=== PATIENT | male | born 1990 | race Caucasian/White ===

== ENCOUNTER → 2019-07-19 | Outpatient (CLI) | payer OTHER | END | disposition home or self-care (01) | LOC: LAB 03:48 | DX: Z03.818 Encounter for observation for suspected exposure to other biological agents ruled out (principal) | CPT/HCPCS: U0003-CS ==

== ENCOUNTER 2019-08-07 01:53 | Emergency (ER) | payer OTHER ==
[~2019-08-07] VITALS: Ht 170.2 cm; Wt 81.6 kg
[2019-08-07 01:56] VITALS: BP 114/72
== END 2019-08-07 02:15 | disposition home or self-care (01) ==
LOC: ER 01:53
DX: Z03.818 Encounter for observation for suspected exposure to other biological agents ruled out (principal)
CPT/HCPCS: 99283; C9803; U0003

== ENCOUNTER 2019-08-21 15:23 | Outpatient (CLI) | payer BC ==
[2019-08-21 16:05] LABS: BASOPHILS % (AUTO) 0.8 % (0.0-2.0); EOSINOPHILS % (AUTO) 4.1 % (0.0-6.0); HEMATOCRIT 45 % (39-51); HEMOGLOBIN 15.1 g/dL (13.5-17.5); LYMPHOCYTES # (AUTO) 1.9 /CMM (0.8-4.8); LYMPHOCYTES % (AUTO) 33.5 % (20.0-44.0); MEAN CORPUSCULAR HGB CONC 34 g/dl (31.0-36.0); MEAN CORPUSCULAR VOLUME 93 fL (80-96); MONOCYTES # (AUTO) 0.4 /CMM (0.1-1.30); MONOCYTES % (AUTO) 7.7 % (2.0-12.0); NEUTROPHILS % (AUTO) 53.9 % (43.0-81.0); PLATELET COUNT (AUTO) 251 /CMM (150-450); RED BLOOD CELL COUNT(AUTO) 4.82 MIL/uL (4.5-6.0); WHITE BLOOD COUNT (AUTO) 5.6 K/uL (4.3-11.0)
[2019-08-21 16:29] LABS: APPEARANCE,URINE CLEAR (CLEAR); BILIRUBIN,URINE NEGATIVE (NEGATIVE); BLOOD, URINE NEGATIVE Ery/uL (NEGATIVE); COLOR,URINE YELLOW (YELLOW); KETONES,URINE NEGATIVE (NEGATIVE); LEUKOCYTE ESTERASE ,URINE NEGATIVE (NEGATIVE); NITRITE, URINE NEGATIVE (NEGATIVE); PH,URINE 6.5 (5.0-8.0); PROTEIN,URINE NEGATIVE (NEGATIVE); UGLUCOSE NEGATIVE (NEGATIVE); UROBILINOGEN,URINE 0.2 EU/dL (0.2)
[2019-08-21 16:43] LABS: ALBUMIN 3.8 g/dL (3.4-5.0); BILIRUBIN,TOTAL 0.4 mg/dL (0.2-1.0); CALCIUM, SERUM 8.4 mg/dL (8.5-10.1); CREATININE 1.1 mg/dL (0.6-1.3); POTASSIUM 3.7 mmol/L (3.5-5.1); TOTAL PROTEIN, SERUM 7.4 g/dL (6.4-8.2)
[2019-08-21 17:15] LABS: THYROID STIMULATING HORMONE 0.881 uIU/mL (0.358-3.74)
== END 2019-08-21 23:59 | disposition home or self-care (01) ==
LOC: LAB 15:23
PROVIDERS: ATTEND Legal Medicine
DX: I10 Essential (primary) hypertension (principal); E55.9 Vitamin D deficiency, unspecified; E78.00 Pure hypercholesterolemia, unspecified; Z00.00 Encounter for general adult medical examination without abnormal findings
CPT/HCPCS: 36415; 80053-TC; 80061-TC; 81000-TC; 82306; 84402-TC; 84439-TC; 84443-TC; 85025-TC

== ENCOUNTER 2019-08-25 06:01 | Emergency (ER) | payer BC, OTHER ==
[~2019-08-25] VITALS: Ht 170.2 cm; Wt 83.9 kg
[2019-08-25 06:04] VITALS: BP 146/74
== END 2019-08-25 06:30 | disposition home or self-care (01) ==
LOC: ER 06:04
DX: Z11.59 Encounter for screening for other viral diseases (principal)
CPT/HCPCS: 99283; C9803; U0003

== ENCOUNTER → 2019-09-06 | Emergency (ER) | payer OTHER ==
[~2019-09-06] VITALS: Ht 170.2 cm; Wt 83.9 kg
[2019-09-06 04:11] VITALS: BP 152/86
== END | disposition home or self-care (01) ==
LOC: ER 04:07
DX: Z11.59 Encounter for screening for other viral diseases (principal)
CPT/HCPCS: 99283; C9803; U0003

== ENCOUNTER 2019-09-23 00:57 | Emergency (ER) | payer OTHER ==
[~2019-09-23] VITALS: Ht 170.2 cm; Wt 83.9 kg
[2019-09-23 00:58] VITALS: BP 132/67
--- NOTE | 2019-09-23 01:32 | NUR ---
COVID SWAB DONE AND SENT TO LAB.
== END 2019-09-23 01:35 | disposition home or self-care (01) ==
LOC: ER 00:57
DX: Z11.59 Encounter for screening for other viral diseases (principal)
CPT/HCPCS: 99283; C9803; U0003

== ENCOUNTER 2019-10-03 04:00 | Emergency (ER) | payer OTHER ==
[~2019-10-03] VITALS: Ht 170.2 cm; Wt 83.9 kg
[2019-10-03 04:01] VITALS: BP 134/62
--- NOTE | 2019-10-03 04:15 | NUR ---
COVID SWAB DONE AND SENT TO LAB.
== END 2019-10-03 04:17 | disposition home or self-care (01) ==
LOC: ER 04:00
DX: Z20.828 Contact with and (suspected) exposure to other viral communicable diseases (principal)

== ENCOUNTER 2019-10-10 03:52 | Emergency (ER) | payer OTHER ==
[~2019-10-10] VITALS: Ht 170.2 cm; Wt 83.9 kg
[2019-10-10 03:52] VITALS: BP 127/75
--- NOTE | 2019-10-11 06:41 | NUR ---
LAB CALLED REGARDING NEGATIVE COVID RESULT
== END 2019-10-10 04:11 | disposition home or self-care (01) ==
LOC: ER 03:55
DX: Z20.828 Contact with and (suspected) exposure to other viral communicable diseases (principal)
CPT/HCPCS: 99283; C9803; U0003

== ENCOUNTER 2019-10-18 01:59 | Emergency (ER) | payer OTHER ==
[~2019-10-18] VITALS: Ht 170.2 cm; Wt 83.9 kg
[2019-10-18 02:03] VITALS: BP 127/61
--- NOTE | 2019-10-18 02:06 | NUR ---
CALLED FOR COVID SWAB
== END 2019-10-18 02:17 | disposition home or self-care (01) ==
LOC: ER 02:02
DX: Z20.828 Contact with and (suspected) exposure to other viral communicable diseases (principal)
CPT/HCPCS: 99283; C9803; U0003

== ENCOUNTER 2019-10-24 04:08 | Emergency (ER) | payer OTHER ==
[~2019-10-24] VITALS: Ht 170.2 cm; Wt 83.9 kg
[2019-10-24 04:09] VITALS: BP 122/79
--- NOTE | 2019-10-24 04:22 | NUR ---
ADAL SWABBED AND SENT
== END 2019-10-24 04:22 | disposition home or self-care (01) ==
LOC: ER 04:08
DX: Z20.828 Contact with and (suspected) exposure to other viral communicable diseases (principal)
CPT/HCPCS: 99283; C9803; U0003

== ENCOUNTER 2019-10-31 03:48 | Emergency (ER) | payer OTHER ==
[~2019-10-31] VITALS: Ht 170.2 cm; Wt 83.9 kg
[2019-10-31 03:49] VITALS: BP 132/74
--- NOTE | 2019-10-31 03:58 | NUR ---
COVID SWAB DONE AND SENT TO LAB.
== END 2019-10-31 03:59 | disposition home or self-care (01) ==
LOC: ER 03:51
DX: Z20.828 Contact with and (suspected) exposure to other viral communicable diseases (principal)
CPT/HCPCS: 99283; C9803; U0003

== ENCOUNTER 2019-11-21 04:18 | Emergency (ER) | payer OTHER ==
[~2019-11-21] VITALS: Ht 170.2 cm; Wt 83.9 kg
[2019-11-21 04:20] VITALS: BP 132/72
== END 2019-11-21 04:40 | disposition home or self-care (01) ==
LOC: ER 04:25
DX: Z20.828 Contact with and (suspected) exposure to other viral communicable diseases (principal)
CPT/HCPCS: 99283; C9803; U0003

== ENCOUNTER 2019-11-27 01:31 | Emergency (ER) | payer OTHER ==
[~2019-11-27] VITALS: Ht 170.2 cm; Wt 83.9 kg
[2019-11-27 01:33] VITALS: BP 124/62
--- NOTE | 2019-11-27 01:50 | NUR ---
UNABLE TO DEPART DUE TO MEDITEC
== END 2019-11-27 01:50 | disposition home or self-care (01) ==
LOC: ER 01:31
DX: Z20.828 Contact with and (suspected) exposure to other viral communicable diseases (principal)
CPT/HCPCS: 99283; C9803; U0003

== ENCOUNTER 2019-12-04 04:38 | Emergency (ER) | payer OTHER ==
[~2019-12-04] VITALS: Ht 170.2 cm; Wt 83.9 kg
[2019-12-04 04:41] VITALS: BP 134/61
== END 2019-12-04 04:53 | disposition home or self-care (01) ==
LOC: ER 04:38
DX: Z20.828 Contact with and (suspected) exposure to other viral communicable diseases (principal)
CPT/HCPCS: 99283; C9803; U0003

== ENCOUNTER 2019-12-11 04:31 | Emergency (ER) | payer OTHER ==
[~2019-12-11] VITALS: Ht 170.2 cm; Wt 83.9 kg
[2019-12-11 04:32] VITALS: BP 132/67
== END 2019-12-11 05:04 | disposition home or self-care (01) ==
LOC: ER 04:31
DX: Z20.828 Contact with and (suspected) exposure to other viral communicable diseases (principal)
CPT/HCPCS: 99283; C9803; U0003

== ENCOUNTER 2019-12-24 12:24 | Outpatient (CLI) | payer BC ==
[2019-12-24 13:30] LABS: BASOPHILS % (AUTO) 0.7 % (0.0-2.0); EOSINOPHILS % (AUTO) 1.9 % (0.0-6.0); HEMATOCRIT 48 % (39-51); HEMOGLOBIN 16.4 g/dL (13.5-17.5); LYMPHOCYTES # (AUTO) 2.3 /CMM (0.8-4.8); LYMPHOCYTES % (AUTO) 39.6 % (20.0-44.0); MEAN CORPUSCULAR HGB CONC 34 g/dl (31.0-36.0); MEAN CORPUSCULAR VOLUME 93 fL (80-96); MONOCYTES # (AUTO) 0.5 /CMM (0.1-1.30); NEUTROPHILS # (AUTO) 2.9 /CMM (1.8-8.9); NEUTROPHILS % (AUTO) 49.8 % (43.0-81.0); PLATELET COUNT (AUTO) 288 /CMM (150-450); RED BLOOD CELL COUNT(AUTO) 5.13 MIL/uL (4.5-6.0); WHITE BLOOD COUNT (AUTO) 5.8 K/uL (4.3-11.0)
[2019-12-24 13:46] LABS: ALBUMIN 3.9 g/dL (3.4-5.0); BILIRUBIN,TOTAL 0.7 mg/dL (0.2-1.0); CALCIUM, SERUM 8.9 mg/dL (8.5-10.1); CREATININE 0.9 mg/dL (0.6-1.3); POTASSIUM 3.6 mmol/L (3.5-5.1)
[2019-12-24 13:58] LABS: THYROID STIMULATING HORMONE 1.276 uIU/mL (0.358-3.74)
== END 2019-12-24 23:59 | disposition home or self-care (01) ==
LOC: LAB 12:24
PROVIDERS: ATTEND Internal Medicine Interventional Cardiology
DX: E78.5 Hyperlipidemia, unspecified (principal); E11.9 Type 2 diabetes mellitus without complications; E03.9 Hypothyroidism, unspecified; R53.83 Other fatigue
CPT/HCPCS: 36415; 80053-TC; 80061-TC; 84443-TC; 85025-TC

== ENCOUNTER 2019-12-25 04:45 | Emergency (ER) | payer BC, OTHER ==
[~2019-12-25] VITALS: Ht 170.2 cm; Wt 83.9 kg
[2019-12-25 04:48] VITALS: BP 136/61
== END 2019-12-25 05:30 | disposition home or self-care (01) ==
LOC: ER 04:45
DX: Z20.828 Contact with and (suspected) exposure to other viral communicable diseases (principal)
CPT/HCPCS: 99283; C9803; U0003

== ENCOUNTER 2020-01-10 04:24 | Emergency (ER) | payer OTHER ==
[~2020-01-10] VITALS: Ht 170.2 cm; Wt 83.9 kg
[2020-01-10 04:25] VITALS: BP 132/64
--- NOTE | 2020-01-10 04:49 | NUR ---
COVID SWAB SENT TO LAB
== END 2020-01-10 04:49 | disposition home or self-care (01) ==
LOC: ER 04:25
DX: Z20.828 Contact with and (suspected) exposure to other viral communicable diseases (principal)
CPT/HCPCS: 99283; C9803; U0003

== ENCOUNTER 2020-01-15 04:49 | Emergency (ER) | payer OTHER ==
[~2020-01-15] VITALS: Ht 172.7 cm; Wt 83.9 kg
[2020-01-15 04:49] VITALS: BP 121/75
== END 2020-01-15 05:09 | disposition home or self-care (01) ==
LOC: ER 04:49
DX: Z20.828 Contact with and (suspected) exposure to other viral communicable diseases (principal)
CPT/HCPCS: 99283; C9803; U0003

== ENCOUNTER 2020-01-22 04:51 | Emergency (ER) | payer OTHER ==
[~2020-01-22] VITALS: Ht 172.7 cm; Wt 83.9 kg
[2020-01-22 04:52] VITALS: BP 129/68
== END 2020-01-22 04:58 | disposition home or self-care (01) ==
LOC: ER 04:51
DX: Z20.828 Contact with and (suspected) exposure to other viral communicable diseases (principal)
CPT/HCPCS: 99283; C9803; U0003

== ENCOUNTER 2020-01-29 04:39 | Emergency (ER) | payer OTHER ==
[~2020-01-29] VITALS: Ht 172.7 cm; Wt 81.6 kg
[2020-01-29 04:40] VITALS: BP 121/68
== END 2020-01-29 04:51 | disposition home or self-care (01) ==
LOC: ER 04:41
DX: Z20.828 Contact with and (suspected) exposure to other viral communicable diseases (principal)
CPT/HCPCS: 99283; C9803; U0003

== ENCOUNTER 2020-02-03 04:51 | Emergency (ER) | payer OTHER ==
[~2020-02-03] VITALS: Ht 172.7 cm; Wt 83.9 kg
[2020-02-03 04:53] VITALS: BP 132/65
--- NOTE | 2020-02-03 22:40 | NUR ---
LAB CALLED REGARDING NEGATIVE COVID RESULT
== END 2020-02-03 05:13 | disposition home or self-care (01) ==
LOC: ER 04:52
DX: Z20.828 Contact with and (suspected) exposure to other viral communicable diseases (principal)
CPT/HCPCS: 99283; C9803; U0003

== ENCOUNTER 2020-02-06 04:45 | Emergency (ER) | payer OTHER ==
[~2020-02-06] VITALS: Ht 172.7 cm; Wt 83.9 kg
[2020-02-06 04:46] VITALS: BP 124/62
--- NOTE | 2020-02-06 05:05 | NUR ---
covid swab collected. sent to lab
== END 2020-02-06 05:05 | disposition home or self-care (01) ==
LOC: ER 04:48
DX: Z20.828 Contact with and (suspected) exposure to other viral communicable diseases (principal)
CPT/HCPCS: 99283; C9803; U0003

== ENCOUNTER 2020-02-09 04:55 | Emergency (ER) | payer OTHER ==
[~2020-02-09] VITALS: Ht 172.7 cm; Wt 83.9 kg
[2020-02-09 04:56] VITALS: BP 122/78
== END 2020-02-09 05:12 | disposition home or self-care (01) ==
LOC: ER 04:58
DX: Z20.828 Contact with and (suspected) exposure to other viral communicable diseases (principal)
CPT/HCPCS: 99283; C9803; U0003

== ENCOUNTER 2020-02-12 04:29 | Emergency (ER) | payer OTHER ==
[~2020-02-12] VITALS: Ht 172.7 cm; Wt 83.9 kg
[2020-02-12 04:31] VITALS: BP 137/70
== END 2020-02-12 04:48 | disposition home or self-care (01) ==
LOC: ER 04:31
DX: Z20.828 Contact with and (suspected) exposure to other viral communicable diseases (principal)
CPT/HCPCS: 99283; C9803; U0003

== ENCOUNTER 2020-02-15 02:49 | Emergency (ER) | payer OTHER ==
[~2020-02-15] VITALS: Ht 172.7 cm; Wt 78.5 kg
[2020-02-15 02:51] VITALS: BP 127/68
== END 2020-02-15 03:18 | disposition home or self-care (01) ==
LOC: ER 02:52
DX: Z20.828 Contact with and (suspected) exposure to other viral communicable diseases (principal)
CPT/HCPCS: 99283; C9803; U0003

== ENCOUNTER 2020-02-17 00:22 | Emergency (ER) | payer OTHER ==
[~2020-02-17] VITALS: Ht 172.7 cm; Wt 78.5 kg
[2020-02-17 00:33] VITALS: BP 127/84
== END 2020-02-17 00:45 | disposition home or self-care (01) ==
LOC: ER 00:25
DX: Z20.828 Contact with and (suspected) exposure to other viral communicable diseases (principal)
CPT/HCPCS: 99283; C9803; U0003

== ENCOUNTER 2020-02-20 04:02 | Emergency (ER) | payer OTHER ==
[~2020-02-20] VITALS: Ht 172.7 cm; Wt 78.5 kg
[2020-02-20 04:05] VITALS: BP 128/79
== END 2020-02-20 04:19 | disposition home or self-care (01) ==
LOC: ER 04:05
DX: Z20.822 Contact with and (suspected) exposure to COVID-19 (principal)
CPT/HCPCS: 99283; C9803; U0003

== ENCOUNTER 2020-02-23 05:30 | Emergency (ER) | payer OTHER ==
[~2020-02-23] VITALS: Ht 172.7 cm; Wt 78.5 kg
[2020-02-23 05:33] VITALS: BP 128/75
== END 2020-02-23 05:48 | disposition home or self-care (01) ==
LOC: ER 05:31
DX: Z20.828 Contact with and (suspected) exposure to other viral communicable diseases (principal)
CPT/HCPCS: 99283; C9803; U0003

== ENCOUNTER 2020-02-27 03:12 | Emergency (ER) | payer OTHER ==
[~2020-02-27] VITALS: Ht 170.2 cm; Wt 77.6 kg
[2020-02-27 03:14] VITALS: BP 128/64
== END 2020-02-27 03:44 | disposition home or self-care (01) ==
LOC: ER 03:13
DX: Z20.822 Contact with and (suspected) exposure to COVID-19 (principal)
CPT/HCPCS: 99283; C9803; U0003

== ENCOUNTER 2020-03-02 02:39 | Emergency (ER) | payer OTHER ==
[~2020-03-02] VITALS: Ht 170.2 cm; Wt 77.6 kg
[2020-03-02 02:41] VITALS: BP 125/61
== END 2020-03-02 02:54 | disposition home or self-care (01) ==
LOC: ER 02:42
DX: Z20.822 Contact with and (suspected) exposure to COVID-19 (principal)
CPT/HCPCS: 99283; C9803; U0003

== ENCOUNTER 2020-03-08 00:58 | Emergency (ER) | payer OTHER ==
[~2020-03-08] VITALS: Ht 170.2 cm; Wt 77.6 kg
[2020-03-08 00:59] VITALS: BP 132/67
== END 2020-03-08 01:31 | disposition home or self-care (01) ==
LOC: ER 01:09
DX: Z20.822 Contact with and (suspected) exposure to COVID-19 (principal)
CPT/HCPCS: 99283; C9803; U0003

== ENCOUNTER 2020-03-09 23:48 | Emergency (ER) | payer OTHER ==
[~2020-03-09] VITALS: Ht 170.2 cm; Wt 77.6 kg
[2020-03-10 00:03] VITALS: BP 124/61
== END 2020-03-10 00:27 | disposition home or self-care (01) ==
LOC: ER 23:53
DX: Z20.822 Contact with and (suspected) exposure to COVID-19 (principal)
CPT/HCPCS: 99283; C9803; U0003

== ENCOUNTER 2020-03-18 04:07 | Emergency (ER) | payer OTHER ==
[~2020-03-18] VITALS: Ht 172.7 cm; Wt 77.1 kg
[2020-03-18 04:21] VITALS: BP 123/68
== END 2020-03-18 04:55 | disposition home or self-care (01) ==
LOC: ER 04:07
DX: Z20.822 Contact with and (suspected) exposure to COVID-19 (principal)
CPT/HCPCS: 99283; C9803; U0003

== ENCOUNTER 2020-03-20 04:36 | Emergency (ER) | payer OTHER ==
[~2020-03-20] VITALS: Ht 170.2 cm; Wt 78.0 kg
[2020-03-20 04:38] VITALS: BP 121/73
== END 2020-03-20 05:43 | disposition home or self-care (01) ==
LOC: ER 04:39
DX: Z20.822 Contact with and (suspected) exposure to COVID-19 (principal)
CPT/HCPCS: 99283; C9803; U0003

== ENCOUNTER 2020-03-25 02:07 | Emergency (ER) | payer OTHER ==
[~2020-03-25] VITALS: Ht 172.7 cm; Wt 61.2 kg
[2020-03-25 02:13] VITALS: BP 118/78
== END 2020-03-25 02:47 | disposition home or self-care (01) ==
LOC: ER 02:24
DX: Z20.822 Contact with and (suspected) exposure to COVID-19 (principal)
CPT/HCPCS: 99283; C9803; U0003

== ENCOUNTER 2020-03-27 17:48 | Emergency (ER) | payer BC, OTHER ==
[~2020-03-27] VITALS: Ht 172.7 cm; Wt 84.8 kg
--- NOTE | 2020-03-27 17:48 | NUR ---
PT BIB SELF C/O RIGHT LOWER ABDOMINAL PAIN FOR 2 DAYS. PT IS AAOX4, NOT IN RESPIRATORY DISTRESS, V/S STABLE, KEPT RESTED AND COMFORTABLE. WILL CONTINUE TO MONITOR.
--- NOTE | 2020-03-27 17:59 | NUR ---
DR CABRERA AT BEDSIDE
[2020-03-27] MEDS ORDERED: PANTOPRAZOLE 40 MG VIAL IV ONE (18:00)
[2020-03-27] MEDS ORDERED: IV NS 0.9% 1,000 ML BAG IV ONE (18:00)
[2020-03-27] MEDS ORDERED: KETOROLAC TROMETHAMINE INJ 30 MG/ML VIAL IV ONE (18:00)
[2020-03-27] MEDS ORDERED: ONDANSETRON HCL/PF 4 MG/2 ML VIAL IVP ONE (18:00)
[2020-03-27] MEDS ORDERED: PANTOPRAZOLE 40 MG VIAL ONE (18:04)
[2020-03-27] MEDS ORDERED: KETOROLAC TROMETHAMINE INJ 30 MG/ML VIAL ONE (18:04)
[2020-03-27] MEDS ORDERED: ONDANSETRON HCL/PF 4 MG/2 ML VIAL ONE (18:04)
--- NOTE | 2020-03-27 18:05 | NUR ---
URINE SPECIMEN COLLECTED AND SENT TO LAB.
[2020-03-27 18:14] LABS: BILIRUBIN,URINE Negative (NEGATIVE); COLOR,URINE YELLOW (YELLOW); LEUKOCYTE ESTERASE ,URINE Negative (NEGATIVE); NITRITE, URINE Negative (NEGATIVE); PROTEIN,URINE Negative (NEGATIVE); UGLUCOSE Negative (NEGATIVE); UROBILINOGEN,URINE 0.2 EU/dL (0.2)
[2020-03-27 18:23] LABS: BASOPHILS # (AUTO) 0.1 /CMM (0.0-0.2); BASOPHILS % (AUTO) 0.7 % (0.0-2.0); EOSINOPHILS % (AUTO) 4.3 % (0.0-6.0); HEMATOCRIT 47 % (39-51); LYMPHOCYTES # (AUTO) 2.4 /CMM (0.8-4.8); MEAN CORPUSCULAR HGB CONC 34 g/dl (31.0-36.0); MEAN CORPUSCULAR VOLUME 93 fL (80-96); MONOCYTES # (AUTO) 0.5 /CMM (0.1-1.30); MONOCYTES % (AUTO) 6.6 % (2.0-12.0); NEUTROPHILS # (AUTO) 4.4 /CMM (1.8-8.9); NEUTROPHILS % (AUTO) 57.4 % (43.0-81.0); PLATELET COUNT (AUTO) 297 /CMM (150-450); RED BLOOD CELL COUNT(AUTO) 5.08 MIL/uL (4.5-6.0); WHITE BLOOD COUNT (AUTO) 7.7 K/uL (4.3-11.0)
--- NOTE | 2020-03-27 18:28 | NUR ---
PATIENT BACK TO ROOM FROM CT SCAN
[2020-03-27 18:47] LABS: CALCIUM, SERUM 9.6 mg/dL (8.5-10.1); POTASSIUM 3.6 mmol/L (3.5-5.1)
--- NOTE | 2020-03-27 18:50 | NUR ---
BIOMEDICAL ANALYTICAL SCIENTIST AT BEDSIDE FOR MAURICIO
[2020-03-27 18:53] LABS: ALBUMIN 3.9 g/dL (3.4-5.0); BILIRUBIN,DIRECT 0.1 mg/dL (0.0-0.2); BILIRUBIN,TOTAL 0.9 mg/dL (0.2-1.0)
--- NOTE | 2020-03-27 19:02 | NUR ---
REPORT GIVEN TO VISH FRYE FOR CIERRA
[2020-03-27] MEDS ORDERED: AMOX-430 PO (19:29)
[2020-03-27] MEDS ORDERED: IBUP-1957 PO (19:29)
--- NOTE | 2020-03-27 19:41 | NUR ---
Patient discharged to home in stable condition. Written and verbal after care instructions given. Patient verbalizes understanding of instruction.IV removed. Catheter intact and site benign. Pressure and 4x4 applied to site. No bleeding noted.pt. ambulatory with a steady gait
[2020-03-27 19:42] VITALS: BP 145/85
== END 2020-03-27 19:42 | disposition home or self-care (01) ==
LOC: ER 17:52
DX: K52.9 Noninfective gastroenteritis and colitis, unspecified (principal); I11.9 Hypertensive heart disease without heart failure; E11.9 Type 2 diabetes mellitus without complications
CPT/HCPCS: 36415; 71045; 74176; 76705; 80048; 80076; 81003; 83690; 85025; 96361; 96374; 96375; 99285; C9113; J1885; J7030; J2405

== ENCOUNTER 2020-04-01 04:28 | Emergency (ER) | payer OTHER, BC ==
[~2020-04-01] VITALS: Ht 175.3 cm; Wt 84.8 kg
[~2020-04-01 04:28] MED LIST: AMOX-430 PO; IBUP-1957 PO
[2020-04-01 04:30] VITALS: BP 118/66
== END 2020-04-01 04:52 | disposition home or self-care (01) ==
LOC: ER 04:28
DX: Z20.822 Contact with and (suspected) exposure to COVID-19 (principal)
CPT/HCPCS: 99283; C9803; U0003

== ENCOUNTER 2020-04-04 04:47 | Emergency (ER) | payer BC, OTHER ==
[~2020-04-04] VITALS: Ht 172.7 cm; Wt 78.5 kg
[2020-04-04 04:48] VITALS: BP 119/71
== END 2020-04-04 05:45 | disposition home or self-care (01) ==
LOC: ER 04:55
DX: Z20.822 Contact with and (suspected) exposure to COVID-19 (principal)
CPT/HCPCS: 99283; C9803; U0003

== ENCOUNTER 2020-04-06 01:16 | Emergency (ER) | payer BC, OTHER ==
[~2020-04-06] VITALS: Ht 172.7 cm; Wt 78.5 kg
[2020-04-06 01:21] VITALS: BP 131/80
== END 2020-04-06 01:54 | disposition home or self-care (01) ==
LOC: ER 01:19
DX: Z20.822 Contact with and (suspected) exposure to COVID-19 (principal)
CPT/HCPCS: 99283; C9803; U0003

== ENCOUNTER 2020-04-13 01:28 | Emergency (ER) | payer OTHER ==
[~2020-04-13] VITALS: Ht 172.7 cm; Wt 78.5 kg
[2020-04-13 01:38] VITALS: BP 125/85
== END 2020-04-13 02:26 | disposition home or self-care (01) ==
LOC: ER 01:31
DX: Z20.822 Contact with and (suspected) exposure to COVID-19 (principal)
CPT/HCPCS: 99283; C9803; U0003

== ENCOUNTER 2020-04-15 01:23 | Emergency (ER) | payer OTHER ==
[~2020-04-15] VITALS: Ht 172.7 cm; Wt 78.5 kg
[2020-04-15 01:25] VITALS: BP 133/75
--- NOTE | 2020-04-17 11:46 | NUR ---
RECEIVED RESULT FROM MAIN LAB: COVID PCR NEGATIVE
--- NOTE | 2020-04-17 11:47 | NUR ---
SPOKE TO CHERYL, JÚNIOR W ADAL RESULT
== END 2020-04-15 01:44 | disposition home or self-care (01) ==
LOC: ER 01:23
DX: Z02.89 Encounter for other administrative examinations (principal); Z20.822 Contact with and (suspected) exposure to COVID-19
CPT/HCPCS: 99283; C9803; U0003

== ENCOUNTER → 2020-04-30 | Emergency (ER) | payer OTHER ==
[~2020-04-30] VITALS: Ht 167.6 cm; Wt 83.9 kg
[2020-04-30 16:17] VITALS: BP 121/71
--- NOTE | 2020-04-30 16:46 | NUR ---
Patient discharged to home in stable condition. Written and verbal after care instructions given. Patient verbalizes understanding of instruction. Pt ambulatory with a steady gait
--- NOTE | 2020-04-30 16:46 | NUR ---
covid swab done and sent to lab
== END | disposition home or self-care (01) ==
LOC: ER 17:10
DX: Z20.822 Contact with and (suspected) exposure to COVID-19 (principal)
CPT/HCPCS: 99283; C9803; U0003

== ENCOUNTER 2020-05-25 01:03 | Emergency (ER) | payer OTHER ==
[~2020-05-25] VITALS: Ht 167.6 cm; Wt 83.9 kg
[2020-05-25 01:06] VITALS: BP 124/79
== END 2020-05-25 01:27 | disposition home or self-care (01) ==
LOC: ER 01:07
DX: Z20.822 Contact with and (suspected) exposure to COVID-19 (principal)
CPT/HCPCS: 99283; C9803; U0003

== ENCOUNTER 2020-06-01 01:19 | Emergency (ER) | payer OTHER ==
[~2020-06-01] VITALS: Ht 167.6 cm; Wt 83.9 kg
[2020-06-01 01:20] VITALS: BP 125/64
== END 2020-06-01 02:26 | disposition home or self-care (01) ==
LOC: ER 01:22
DX: Z20.822 Contact with and (suspected) exposure to COVID-19 (principal)
CPT/HCPCS: 99283; C9803; U0003

== ENCOUNTER 2020-06-08 01:02 | Emergency (ER) | payer OTHER ==
[~2020-06-08] VITALS: Ht 167.6 cm; Wt 83.0 kg
[2020-06-08 01:04] VITALS: BP 127/72
== END 2020-06-08 02:10 | disposition home or self-care (01) ==
LOC: ER 01:05
DX: Z20.822 Contact with and (suspected) exposure to COVID-19 (principal)
CPT/HCPCS: 99283; C9803; U0003

== ENCOUNTER 2020-06-16 02:38 | Emergency (ER) | payer OTHER ==
[~2020-06-16] VITALS: Ht 167.6 cm; Wt 83.9 kg
[2020-06-16 02:41] VITALS: BP 131/67
== END 2020-06-16 03:06 | disposition home or self-care (01) ==
LOC: ER 02:41
DX: Z20.822 Contact with and (suspected) exposure to COVID-19 (principal)
CPT/HCPCS: 99283; C9803; U0003

== ENCOUNTER 2020-06-22 02:10 | Emergency (ER) | payer OTHER ==
[~2020-06-22] VITALS: Ht 167.6 cm; Wt 83.9 kg
[2020-06-22 02:10] VITALS: BP 119/74
== END 2020-06-22 03:57 | disposition home or self-care (01) ==
LOC: ER 02:16
DX: Z20.822 Contact with and (suspected) exposure to COVID-19 (principal)
CPT/HCPCS: 99283; C9803; U0003

== ENCOUNTER 2020-06-27 23:44 | Emergency (ER) | payer OTHER ==
[~2020-06-27] VITALS: Ht 167.6 cm; Wt 83.9 kg
[2020-06-27 23:52] VITALS: BP 129/86
== END 2020-06-28 00:36 | disposition home or self-care (01) ==
LOC: ER 23:49
DX: Z20.822 Contact with and (suspected) exposure to COVID-19 (principal)
CPT/HCPCS: 99283; C9803; U0003

== ENCOUNTER 2020-07-10 19:53 | Emergency (ER) | payer OTHER ==
[~2020-07-10] VITALS: Ht 167.6 cm; Wt 83.9 kg
[2020-07-10 20:03] VITALS: BP 133/80
== END 2020-07-10 20:38 | disposition home or self-care (01) ==
LOC: ER 20:01
DX: Z20.822 Contact with and (suspected) exposure to COVID-19 (principal)
CPT/HCPCS: 99283; C9803; U0003

== ENCOUNTER 2020-07-12 02:43 | Emergency (ER) | payer OTHER ==
[~2020-07-12] VITALS: Ht 167.6 cm; Wt 83.9 kg
[2020-07-12 02:54] VITALS: BP 129/77
== END 2020-07-12 03:42 | disposition home or self-care (01) ==
LOC: ER 02:47
DX: Z20.822 Contact with and (suspected) exposure to COVID-19 (principal)
CPT/HCPCS: 99283; C9803; U0003

== ENCOUNTER 2020-07-22 03:24 | Emergency (ER) | payer OTHER ==
[~2020-07-22] VITALS: Ht 167.6 cm; Wt 81.6 kg
[2020-07-22 03:29] VITALS: BP 125/71
== END 2020-07-22 05:31 | disposition home or self-care (01) ==
LOC: ER 03:24
DX: Z20.822 Contact with and (suspected) exposure to COVID-19 (principal)
CPT/HCPCS: 99283; C9803; U0003

== ENCOUNTER 2020-07-28 00:38 | Emergency (ER) | payer OTHER ==
[~2020-07-28] VITALS: Ht 167.6 cm; Wt 81.6 kg
[2020-07-28 00:47] VITALS: BP 134/86
== END 2020-07-28 01:29 | disposition home or self-care (01) ==
LOC: ER 00:40
DX: Z20.822 Contact with and (suspected) exposure to COVID-19 (principal)
CPT/HCPCS: 99283; C9803; U0003

== ENCOUNTER 2020-08-03 03:44 | Emergency (ER) | payer OTHER ==
[~2020-08-03] VITALS: Ht 167.6 cm; Wt 81.6 kg
[2020-08-03 03:49] VITALS: BP 129/62
== END 2020-08-03 04:20 | disposition home or self-care (01) ==
LOC: ER 03:46
DX: Z20.822 Contact with and (suspected) exposure to COVID-19 (principal)
CPT/HCPCS: 99283; C9803; U0003

== ENCOUNTER 2020-08-11 03:26 | Emergency (ER) | payer OTHER ==
[~2020-08-11] VITALS: Ht 172.7 cm; Wt 86.2 kg
[2020-08-11 03:33] VITALS: BP 132/65
== END 2020-08-11 03:40 | disposition home or self-care (01) ==
LOC: ER 03:27
DX: Z20.822 Contact with and (suspected) exposure to COVID-19 (principal)
CPT/HCPCS: 99283; C9803; U0003

== ENCOUNTER 2020-09-18 04:44 | Emergency (ER) | payer OTHER ==
[~2020-09-18] VITALS: Ht 172.7 cm; Wt 86.2 kg
[2020-09-18 04:45] VITALS: BP 125/62
== END 2020-09-18 05:07 | disposition home or self-care (01) ==
LOC: ER 04:49
DX: R05 Cough (principal); J02.9 Acute pharyngitis, unspecified; Z20.822 Contact with and (suspected) exposure to COVID-19
CPT/HCPCS: 99283; C9803; U0003

== ENCOUNTER 2021-02-07 00:39 | Emergency (ER) | payer OTHER ==
[~2021-02-07] VITALS: Ht 167.6 cm; Wt 82.1 kg
[2021-02-07 00:42] VITALS: BP 121/67
== END 2021-02-07 01:33 | disposition home or self-care (01) ==
LOC: ER 00:42
DX: Z20.822 Contact with and (suspected) exposure to COVID-19 (principal)
CPT/HCPCS: 99283; C9803; U0003

== ENCOUNTER 2021-02-24 04:31 | Emergency (ER) | payer OTHER | END 2021-02-24 05:13 | disposition home or self-care (01) | LOC: ER 04:32 | DX: Z20.822 Contact with and (suspected) exposure to COVID-19 (principal) | CPT/HCPCS: C9803; U0003 ==

== ENCOUNTER 2021-04-21 14:14 | Outpatient (CLI) | payer BC ==
[2021-04-21 15:47] LABS: BASOPHILS % (AUTO) 0.6 % (0.0-2.0); EOSINOPHILS % (AUTO) 3.2 % (0.0-6.0); HEMATOCRIT 48 % (39-51); HEMOGLOBIN 16.2 g/dL (13.5-17.5); LYMPHOCYTES # (AUTO) 1.7 K/uL (0.8-4.8); LYMPHOCYTES % (AUTO) 29.7 % (20.0-44.0); MEAN CORPUSCULAR HGB CONC 34 g/dl (31.0-36.0); MEAN CORPUSCULAR VOLUME 91 fL (80-96); MONOCYTES # (AUTO) 0.4 K/uL (0.1-1.30); MONOCYTES % (AUTO) 6.7 % (2.0-12.0); NEUTROPHILS # (AUTO) 3.5 K/uL (1.8-8.9); NEUTROPHILS % (AUTO) 59.8 % (43.0-81.0); PLATELET COUNT (AUTO) 281 K/uL (150-450); WHITE BLOOD COUNT (AUTO) 5.8 K/uL (4.3-11.0)
[2021-04-21 16:12] LABS: FREE T4 (FREE THYROXINE) 1.11 ng/dL (0.76-1.46); THYROID STIMULATING HORMONE 0.694 uIU/mL (0.358-3.74); URIC ACID 5.7 mg/dL (2.6-7.2)
[2021-04-21 16:18] LABS: BILIRUBIN,URINE NEGATIVE (NEGATIVE); COLOR,URINE YELLOW (YELLOW); LEUKOCYTE ESTERASE ,URINE NEGATIVE (NEGATIVE); NITRITE, URINE NEGATIVE (NEGATIVE); PROTEIN,URINE NEGATIVE (NEGATIVE); UGLUCOSE NEGATIVE (NEGATIVE); UROBILINOGEN,URINE 0.2 EU/dL (0.2)
[2021-04-21 16:30] LABS: ALBUMIN 3.8 g/dL (3.4-5.0); BILIRUBIN,TOTAL 0.9 mg/dL (0.2-1.0); CALCIUM, SERUM 8.9 mg/dL (8.5-10.1); CREATININE 0.9 mg/dL (0.6-1.3); POTASSIUM 3.4 mmol/L (3.5-5.1); TOTAL PROTEIN, SERUM 7.9 g/dL (6.4-8.2)
[2021-04-21 16:40] LABS: BACTERIA,URINE None seen /HPF (None Seen); SQUAMOUS EPITHELIAL CELL,UR None Seen /HPF (None Seen); WBC,URINE 0-2 /HPF (0-3)
== END 2021-04-21 23:59 | disposition home or self-care (01) ==
LOC: LAB 14:14
PROVIDERS: ATTEND Legal Medicine
DX: E11.9 Type 2 diabetes mellitus without complications (principal); E78.5 Hyperlipidemia, unspecified; E55.9 Vitamin D deficiency, unspecified; E03.9 Hypothyroidism, unspecified; D64.9 Anemia, unspecified; Z00.00 Encounter for general adult medical examination without abnormal findings
CPT/HCPCS: 36415; 80053-TC; 80061-TC; 81001; 82306; 82607-TC; 82626; 83540-TC; 84402; 84403; 84439-TC; 84443-TC; 84550-TC; 85025-TC

== ENCOUNTER 2021-10-20 12:26 | Outpatient (CLI) | payer BC ==
[2021-10-20 13:36] LABS: BASOPHILS % (AUTO) 0.7 % (0.0-2.0); BILIRUBIN,URINE NEGATIVE (NEGATIVE); COLOR,URINE YELLOW (YELLOW); EOSINOPHILS % (AUTO) 2.6 % (0.0-6.0); HEMATOCRIT 47 % (39-51); LEUKOCYTE ESTERASE ,URINE NEGATIVE (NEGATIVE); LYMPHOCYTES # (AUTO) 1.8 K/uL (0.8-4.8); LYMPHOCYTES % (AUTO) 29.5 % (20.0-44.0); MEAN CORPUSCULAR HGB CONC 34 g/dl (31.0-36.0); MEAN CORPUSCULAR VOLUME 91 fL (80-96); MONOCYTES # (AUTO) 0.6 K/uL (0.1-1.30); MONOCYTES % (AUTO) 8.9 % (2.0-12.0); NEUTROPHILS # (AUTO) 3.6 K/uL (1.8-8.9); NEUTROPHILS % (AUTO) 58.3 % (43.0-81.0); NITRITE, URINE NEGATIVE (NEGATIVE); PLATELET COUNT (AUTO) 292 K/uL (150-450); PROTEIN,URINE NEGATIVE (NEGATIVE); RED BLOOD CELL COUNT(AUTO) 5.19 MIL/uL (4.5-6.0); UGLUCOSE NEGATIVE (NEGATIVE); UROBILINOGEN,URINE 0.2 EU/dL (0.2); WHITE BLOOD COUNT (AUTO) 6.2 K/uL (4.3-11.0)
[2021-10-20 14:07] LABS: THYROID STIMULATING HORMONE 1.062 uIU/mL (0.358-3.74)
[2021-10-20 14:31] LABS: ALBUMIN 3.8 g/dL (3.4-5.0); BILIRUBIN,TOTAL 0.6 mg/dL (0.2-1.0); POTASSIUM 3.8 mmol/L (3.5-5.1); TOTAL PROTEIN, SERUM 7.8 g/dL (6.4-8.2)
[2021-10-20 14:32] LABS: C-REACTIVE PROTEIN 0.9 mg/dL (0.0-0.9)
== END 2021-10-20 23:59 | disposition home or self-care (01) ==
LOC: LAB 12:26
PROVIDERS: ATTEND Legal Medicine
DX: Z00.00 Encounter for general adult medical examination without abnormal findings (principal); E11.9 Type 2 diabetes mellitus without complications; E78.00 Pure hypercholesterolemia, unspecified; R10.9 Unspecified abdominal pain; E03.9 Hypothyroidism, unspecified; D64.9 Anemia, unspecified; E55.9 Vitamin D deficiency, unspecified
CPT/HCPCS: 36415; 80053-TC; 80061-TC; 82150-TC; 82607-TC; 82728-TC; 83540-TC; 83690-TC; 84402-TC; 84443-TC; 85025-TC; 85652-TC; 86140-TC

== ENCOUNTER 2021-10-26 09:03 | Outpatient (CLI) | payer BC ==
[2021-10-26] MEDS ORDERED: IOHEXOL-300 100 ML VIAL IV ONE (09:16)
[2021-10-26] MEDS ORDERED: CT SWABBABLE VALVE TRANS SET 1 EA INFUS.SET MC ONE (09:16)
[2021-10-26] MEDS ORDERED: IV NS 0.9% 250 ML IV ONE (09:16)
== END 2021-10-26 23:59 | disposition home or self-care (01) ==
LOC: CT 09:03
PROVIDERS: ATTEND Legal Medicine
DX: Q63.1 Lobulated, fused and horseshoe kidney (principal); K52.9 Noninfective gastroenteritis and colitis, unspecified; R93.5 Abnormal findings on diagnostic imaging of other abdominal regions, including retroperitoneum; R10.9 Unspecified abdominal pain
CPT/HCPCS: 74177; J7050; Q9967

== ENCOUNTER 2024-02-04 15:13 | Emergency (ER) | payer BC, OTHER ==
[~2024-02-04] VITALS: Ht 172.7 cm; Wt 93.0 kg
[2024-02-04 15:33] VITALS: BP 123/61; TEMP 98.1; O2SAT 99
[2024-02-04] MEDS: AZITHROMYCIN 250 MG TABLET PO ONE (15:35)
== END 2024-02-04 15:40 | disposition home or self-care (01) ==
LOC: ER 15:21
DX: Z20.811 Contact with and (suspected) exposure to meningococcus (principal); Z79.1 Long term (current) use of non-steroidal anti-inflammatories (NSAID)

== ENCOUNTER 2024-09-30 13:27 | Outpatient (CLI) | payer BC ==
[2024-09-30 14:15] LABS: PLATELET COUNT (AUTO) 293 K/uL (150-450); RED BLOOD CELL COUNT(AUTO) 5.06 MIL/uL (4.5-6.0); RED CELL DISTRIBUTION WIDTH 13.0 % (11.5-15.0); WHITE BLOOD COUNT (AUTO) 7.1 K/uL (4.3-11.0)
[2024-09-30 14:16] LABS: APPEARANCE,URINE CLEAR (CLEAR); BLOOD, URINE NEGATIVE Ery/uL (NEGATIVE); LEUKOCYTE ESTERASE ,URINE NEGATIVE (NEGATIVE); NITRITE, URINE NEGATIVE (NEGATIVE); UGLUCOSE NEGATIVE (NEGATIVE)
[2024-09-30 15:31] LABS: IRON, SERUM 136.0 ug/dl (50-175)
[2024-09-30 15:43] LABS: LDL 166.0 mg/dL (0-99)
[2024-09-30 16:09] LABS: ASPARTATE AMINOTRANSFERASE 20.0 U/L (15-37); CALCIUM, SERUM 8.9 mg/dL (8.5-10.1); CREATININE 0.9 mg/dL (0.6-1.3); SODIUM SERUM 138.0 mmol/L (136-145); TOTAL PROTEIN, SERUM 7.8 g/dL (6.4-8.2); UREA NITROGEN, BLOOD 18.0 mg/dL (7-18)
[2024-10-01 11:07] LABS: *TESTOSTERONE, SERUM 418.0 ng/dL (264-916)
[2024-10-02 01:06] LABS: FOLIC ACID 18.5 ng/mL (>3.0); VIT D, 25-HYDROXY 33.1 ng/mL (30.0-100.0)
[2024-10-03 14:07] LABS: *TESTOSTERONE, FREE (DIRECT) 16.9 pg/mL (8.7-25.1)
== END 2024-09-30 23:59 | disposition home or self-care (01) ==
LOC: LAB 13:27
PROVIDERS: ATTEND Legal Medicine
DX: I10 Essential (primary) hypertension (principal); E11.9 Type 2 diabetes mellitus without complications; R53.1 Weakness; E55.9 Vitamin D deficiency, unspecified; Z00.00 Encounter for general adult medical examination without abnormal findings; D64.9 Anemia, unspecified; E03.9 Hypothyroidism, unspecified; E78.5 Hyperlipidemia, unspecified
CPT/HCPCS: 36415; 80053-TC; 80061-TC; 82306; 82607-TC; 82728-TC; 83540-TC; 84402; 84403; 84439-TC; 84443-TC; 84550-TC; 85025-TC